=== PATIENT | female | born 1930 | race Caucasian/White ===

== ENCOUNTER 2017-01-28 08:10 | Observation (INO) | payer MEDICARE ==
[~2017-01-28 08:10] MED LIST: ALIG4CAP PO; B COTAB3 PO; CALC600T10 PO; COLA100C PO; CRANCAP PO; LEVO.125 PO; OMEP20CA5 PO; PROM6.2518 PO; REST30CA PO; ROSU10 PO; TAB-TAB PO; VITA100017 PO; VITA400C28 PO
[2017-01-28] MEDS ORDERED: LACTATED RINGER'S 1000 ML IV PRN (09:00)
[2017-01-28] MEDS ORDERED: CHLORHEXIDINE GLUCONATE 2 % 1 PACK (2 CLOTHS) TOPICAL PRN (09:00)
[2017-01-28] MEDS ORDERED: INSULIN HUMAN REGULAR 1,000 UNITS/10 ML VIAL SQ PRN (09:00)
[2017-01-28] MEDS ORDERED: POVIDONE IODINE 5% (ANTISEPSIS KIT) 4 APPLICATIONS EACH NARE PRN (09:00)
[2017-01-28] MEDS ORDERED: SODIUM CHLORID 0.9% 500 ML IV PRN (09:00)
[2017-01-28] MEDS ORDERED: METOPROLOL TARTRATE 25 MG TAB PO PRN (09:00)
[2017-01-28] MEDS ORDERED: ASCO10003 PO (09:12)
[2017-01-28] MEDS ORDERED: TEMA30CA PO (09:12)
[2017-01-28] MEDS ORDERED: DOCU100T9 PO (09:12)
[2017-01-28] MEDS ORDERED: CRAN500C3 PO (09:12)
[2017-01-28] MEDS ORDERED: VITA400T2 PO (09:12)
[2017-01-28] MEDS ORDERED: CALCTAB5 PO (09:12)
[2017-01-28] MEDS ORDERED: LEVO125T4 PO (09:12)
[2017-01-28] MEDS ORDERED: ROSU10 PO (09:12)
[2017-01-28] MEDS ORDERED: OMEP20TA PO (09:12)
[2017-01-28] MEDS ORDERED: ALIG4CAP PO (09:12)
[2017-01-28] MEDS ORDERED: VITACAP7 PO (09:12)
[2017-01-28] MEDS ORDERED: PROM10SO PO (09:12)
[2017-01-28] MEDS ORDERED: MORPHINE SULFATE 4 MG/ML INJ IV PUSH ONE (11:35)
[2017-01-28 11:50] VITALS: PULSE 68
--- NOTE | 2017-01-28 12:18 | GIPROC ---
[facility] [address] [facility]. [facility], [id number] EGD PROCEDURE REPORT EXAM DATE: 01/28/2017 PATIENT NAME: Stevo Sanchez MR #: [id number] BIRTHDATE: 1930 ATTENDING: Tavo Burrell MD ORDER #: [id number] INSPECTOR: Artie Dong and Aleena Carney STATUS: outpatient INDICATIONS: The patient is a 86 yr old female here for an EGD due to Pancreatic cyst PROCEDURE PERFORMED: upper endoscopic ultrasound MEDICATIONS: None and Per Anesthesia. TOPICAL ANESTHETIC: CONSENT: The patient understands the risks and benefits of the procedure and understands that these risks include, but are not limited to: sedation, allergic reaction, infection, perforation and/or bleeding. Alternative means of evaluation and treatment include, among others: physical exam, x-rays, and/or surgical intervention. The patient elects to proceed with this endoscopic procedure. medical equipment was checked for proper function. Hand hygiene and appropriate measures for infection prevention was taken. After the risks, benefits and alternatives of the procedure were thoroughly explained, Informed consent was verified, confirmed and timeout was successfully executed by the treatment team. The patient was anesthetized with topical anesthesia and the Pentax [id number]-[id number] endoscope was introduced through the mouth and advanced to the second portion of the duodenum. Retroflexion was not performed The gastroscope was then slowly withdrawn and removed. Endoscopic ultrasound was performed of the upper GI tract The pancreatic parenchyma appeared to be unremarkable mildly hyperechoic from head to tail no cysts or tumors were identified Pancreatic duct was within normal limits Common bile duct was within normal limits with no filling defects No lymphadenopathy identified. STOMACH: A medium sized hiatal hernia was noted. ADVERSE EVENTS: There were no complications. IMPRESSIONS: 1. Endoscopic ultrasound was performed of the upper GI tract The pancreatic parenchyma appeared to be unremarkable mildly hyperechoic from head to tail no cysts or tumors were identified Pancreatic duct was within normal limits Common bile duct was within normal limits with no filling defects No lymphadenopathy identified 2. Medium sized hiatal hernia 3. Retroflexion was not performed RECOMMENDATIONS: Follow-up: GI clinic 3 week(s) PATIENT CONDITION: stable DISPOSITION: Home REPEAT EXAM: Tavo Burrell MD eSigned: Tavo Burrell MD 01/28/2017 12:17 PM cc: Jesus Santos M.D. PATIENT NAME: Stevo Sanchez MR#: [id number]
--- NOTE | 2017-01-28 13:30 | RADRPT ---
EXAM DATE/TIME: 01/28/2017 12:47 [facility] COMPARISON: No previous studies available for comparison. INDICATIONS : Abdomen pain after endoscope. ORAL CONTRAST: No oral contrast ingested. RADIATION DOSE: 5.47 CTDIvol (mGy) ; Combined studies - Thorax/Abdomen/Pelvis MEDICAL HISTORY : Cardiovascular disease. SURGICAL HISTORY : Colon resection. Cholecystectomy.Hysterectomy.Appy ENCOUNTER: Initial ACUITY: 1 day PAIN SCALE: 9/10 LOCATION: Abdomen TECHNIQUE: Volumetric scanning of the abdomen was performed. Using automated exposure control and adjustment of the mA and/or kV according to patient size, radiation dose was kept as low as reasonably achievable to obtain optimal diagnostic quality images. FINDINGS: LOWER LUNGS: There is atelectasis in the dependent portions of the lung bases. LIVER: Homogeneous density without lesion. There is no dilation of the biliary tree. No calcified gallston es. SPLEEN: Normal size without lesion. PANCREAS: Within normal limits. KIDNEYS: Normal in size and shape. There is no solid mass, stone, or hydronephrosis. There is a large simple cyst in the right kidney. ADRENAL GLANDS: Within normal limits. AORTA/RETROPERITONEAL: There is no aneurysm or lymphadenopathy. BOWEL/MESENTERY: There is diffuse gaseous dilatation of the colon. The cecum measures up to approximately 7 cm in diam eter. Small bowel is normal in caliber with multiple loops of air-containing small bowel with several small air-fluid levels. There is a moderate size retrocardiac hiatal hernia with apparent small jordan ections of gas along the distal esophagus and posterior vertebral column most consistent with small a reas of free air. This is seen on images numbers one through 5. MUSCULOSKELETAL: Within normal limits for patient age. CONCLUSION: 1. Small collections of free air along the distal esophagus suggesting perforation. Please see chest CT for further details. 2. Abnormal bowel gas pattern most characteristic of an ileus. 3. Moderate size retrocardiac hiatal hernia. Merlin Lucia MD on January 28, 2017 at 13:18 Board Certified Radiologist. This report was verified electronically.
[2017-01-28] MEDS ORDERED: HYDROmorphone HCL PF 2 MG/ML VIAL IV PUSH ONE (13:45)
--- NOTE | 2017-01-28 13:48 | RADRPT ---
EXAM DATE/TIME: 01/28/2017 12:50 [facility] COMPARISON: No previous studies available for comparison. INDICATIONS : Shortness of breath after endoscope. RADIATION DOSE: 5.47 CTDIvol (mGy) MEDICAL HISTORY : Cardiovascular disease. SURGICAL HISTORY : Colon resection. Cholecystectomy. Appendectomy. Hysterectomy ENCOUNTER: Initial ACUITY: 1 day PAIN SCALE: 10/10 LOCATION: Chest TECHNIQUE: Volumetric scanning of the chest was performed. Using automated exposure control and adjustment of t he mA and/or kV according to patient size, radiation dose was kept as low as reasonably achievable to obtain optimal diagnostic quality images. FINDINGS: CT scan of the chest was performed to exclude a perforation following esophageal dilatation. Moderate parenchymal changes are seen in both lungs. I can follow the esophagus down to the hiatal hernia and on image 28, 27, and 26 there is a small col lection of air that is in the paraspinous tissues that would be consistent with a perforation. Minimal bibasilar pa renchymal changes are evident. Patient does have a large right renal cyst. The findings below the diaphragm are described in detail on the CT scan of the abdomen. CONCLUSION: 1. Small amount of paraspinal air at the level of the hiatal hernia. This would be consistent with small perforation. 2. Findings are discussed with Dr. Burrell on today's date. Kelvin Walters MD FACR on January 28, 2017 at 13:22 Board Certified Radiologist. This report was verified electronically.
--- NOTE | 2017-01-28 14:41 | HHI.GIFU ---
Subjective Remarks While in recovery patient complained of upper abdominal pain and so a CT of the chest and abdomen without contrast was performed and there was a small pocket of air surrounding the distal esophagus just above the hiatal hernia suggesting a small perforation and as such the patient was admitted for further evaluation and treatment the patient received 1 g of dye lauded which has helped with the pain she is currently comfortable in bed does not feel any nausea or vomiting the pain is under control Objective Vitals I&O Patient alert and oriented vital signs stable and afebrile Laboratory CBC and CMP is ordered Imaging Last Impressions Abdomen CT 01/28/17 0000 Signed Impressions: Service Date/Time: Saturday, January 28, 2017 12:47 - CONCLUSION: 1. Small collections of free air along the distal esophagus suggesting perforation. Please see chest CT for further details. 2. Abnormal bowel gas pattern most characteristic of an ileus. 3. Moderate size retrocardiac hiatal hernia. Merlin Lucia MD Physical Exam HEENT: Pupils round and reactive to light; normocephalic; atraumatic; no jaundice. Throat is clear. NECK: Neck is supple, no JVD, no lymphadenopathy. CHEST: Chest is clear to auscultation and percussion. CARDIAC: Regular rate and rhythm with no murmur gallop or rubs. ABDOMEN: Soft, mildly distended, with mild tenderness in the upper abdomen; no hepatosplenomegaly; bowel sounds are present in all four quadrants. EXTREMITIES: No clubbing, cyanosis, or edema. SKIN: Normal; no rash; no jaundice. 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 Assessment and Plan Plan History of pancreatic cyst status post EUS which was unremarkable Small amount of free air noted surrounding the distal esophagus suggestive of a possible small perforation An NG tube was placed to low intermittent suction Patient to be monitored overnight Further recommendations shall depend on her hospital course She will remain nothing by mouth and blood work is ordered EKG was done and this was unremarkable Tavo Burrell MD Jan 28, 2017 14:41
[2017-01-28] MEDS ORDERED: ONDANSETRON HCL 4 MG/2 ML VIAL IV PUSH ONE ×2 (14:45→19:00)
--- NOTE | 2017-01-28 15:27 | RADRPT ---
EXAM DATE/TIME: 01/28/2017 14:41 [facility] COMPARISON: CHEST PA & LAT, June 10, 2013, 9:56. INDICATIONS : Evaluate NG tube placement. MEDICAL HISTORY : Cardiovascular disease. SURGICAL HISTORY : Colon resection. Cholecystectomy. Appendectomy. Hysterectomy. ENCOUNTER: Initial ACUITY: 1 day PAIN SCORE: 0/10 LOCATION: Abdomen, upper quadrant. FINDINGS: 2 AP supine portable views the chest were obtained and demonstrate interval placement nasogastric tub e with the tip projected over the mid esophagus. The side port is projected near the thoracic inlet. The tube could be advanced at least 10 cm. There is a small to moderate size left effusion with blunt ing of costophrenic angle. There is patchy opacity at the left lung base. The right lung is clear. Th e heart size is at the upper limits of normal. Surgical clips are again noted in the right upper abdo men consistent with prior cholecystectomy. CONCLUSION: 1. Interval placement of nasogastric tube with the tip projected in the mid esophagus. The tube could be advanced at least 10 cm. 2. Fuowe-ue-zzvnondv left effusion. Merlin Lucia MD on January 28, 2017 at 15:23 Board Certified Radiologist. This report was verified electronically.
[2017-01-28] MEDS ORDERED: BENZOCAINE 20% ORAL SPR 60 ML CAN OROPHARYNG ONE (17:42)
[2017-01-28] MEDS ORDERED: PROPOFOL 200 MG/20 ML AMP IV ONE (18:08)
[2017-01-28 18:37] VITALS: BP 128/77; PULSE 78; RESP 16; TEMP 95.5; O2SAT 92
[2017-01-28] MEDS ORDERED: FLUMAZENIL 0.5 MG/5 ML VIAL IV PRN ×2 (19:00)
[2017-01-28] MEDS ORDERED: NALOXONE HCL 0.4 MG/ML AMP IV PRN (19:00)
[2017-01-28] MEDS: HYDROmorphone HCL PF 1 MG/ML VIAL IV ONE (19:00)
--- NOTE | 2017-01-28 19:07 | EKG ---
Date Performed: 01/28/2017 Time Performed: 12:12:59 PTAGE: 86 years EKG: Sinus rhythm NORMAL ECG Artifact Since PREVIOUS TRACING , no significant change noted PREVIOUS TRACIN01/28/2017 08.41 DOCTOR: Silvia Benitez Interpretating Date/Time 01/28/2017 19:05:31
--- NOTE | 2017-01-28 19:52 | EKG ---
Date Performed: 01/28/2017 Time Performed: 08:41:14 PTAGE: 86 years EKG: Sinus rhythm LOW QRS VOLTAGE IN PRECORDIAL LEADS BORDERLINE ECG Since PREVIOUS TRACING , no significant change noted PREVIOUS TRACIN06/10/2013 08.55 DOCTOR: Silvia Benitez Interpretating Date/Time 01/28/2017 19:51:52
[2017-01-28] MEDS ORDERED: ONDANSETRON HCL 4 MG/2 ML VIAL IV PUSH PRN (20:45)
--- NOTE | 2017-01-28 20:56 | PD.PROCEDR ---
GI Procedure PROCEDURE PERFORMED EGD with NG tube placement INDICATION FOR PROCEDURE Possible perforation and inability to place NG tube PROCEDURE: The procedure, risks and benefits were discussed with Ms. Sanchez and informed consent was obtained. Anesthesia sedated her with Diprivan. She was placed in the left lateral decubitus position. EGD: The Pentax videoscope was introduced through the oropharynx and advanced to the second portion of the duodenum under direct visualization. Retroflexion was performed in the stomach. FINDINGS: Esophagus this appeared to be unremarkable and within normal limits there was a kink at the end of the esophagus that prevented the NG tube from passing freely and at this point in time with direct visualization I was able to guide the NG tube into the stomach The stomach this too appeared to be unremarkable the patient did have a large hiatal hernia but otherwise gastric mucosa unremarkable no evidence of a tear was noted on retroflexion or antegrade evaluation The duodenum this appeared to be normal ESTIMATED BLOOD LOSS: None SPECIMENS REMOVED: None COMPLICATIONS: None IMPRESSION: Large hiatal hernia Successful NG tube placement PLAN: Supportive care Tavo Burrell MD Jan 28, 2017 20:56
[2017-01-28] MEDS: D5-1/2 NS + KCL 20 MEQ INJ 1,000 ML IV SCH (21:25)
[2017-01-28] MEDS: cefTRIAXone INJ 1,000 MG in SODIUM CHLORIDE 0.9% INJ 100 ML IV SCH (21:25)
[2017-01-29] VITALS: BP 122/74; PULSE 92; RESP 18; TEMP 97.1; O2SAT 98
[2017-01-29 00:47] LABS: HEMATOCRIT 39.1 % (35.0-46.0); MEAN CELL VOLUME 88.7 FL (80.0-100.0); MEAN CORPUSCULAR HEMOGLOBIN 28.4 PG (27.0-34.0); PLATELET COUNT 183 TH/MM3 (150-450); RED BLOOD COUNT 4.41 MIL/MM3 (4.00-5.30); RED CELL DISTRIBUTION WIDTH 13.4 % (11.6-17.2); REVIEW FLAG FINAL; WHITE BLOOD COUNT 18.1 TH/MM3 (4.0-11.0)
[2017-01-29 01:02] LABS: ALT (GPT) 28 U/L (10-53); ANION GAP 6 MEQ/L (5-15); AST (GOT) 25 U/L (15-37); BICARBONATE 28.2 MEQ/L (21.0-32.0); BLOOD UREA NITROGEN 23 MG/DL (7-18); CHLORIDE 108 MEQ/L (98-107); GLOMERULAR FILTRATION RATE 66 ML/MIN (>89); POTASSIUM 5.2 MEQ/L (3.5-5.1); SODIUM (NA) 142 MEQ/L (136-145)
[2017-01-29 01:04] LABS: ALKALINE PHOSPHATASE 78 U/L (45-117); TOTAL BILIRUBIN ADULT 0.3 MG/DL (0.2-1.0)
[2017-01-29] MEDS: HYDROmorphone HCL PF 1 MG/ML VIAL IV ONE (02:40)
[2017-01-29 04:00] VITALS: BP 120/59; PULSE 73; RESP 18; TEMP 97.6; O2SAT 94
[2017-01-29 04:35] LABS: HEMATOCRIT 36.9 % (35.0-46.0); MEAN CELL VOLUME 87.7 FL (80.0-100.0); MEAN CORPUSCULAR HGB CONC 31.9 % (32.0-36.0); PLATELET COUNT 193 TH/MM3 (150-450); RED BLOOD COUNT 4.21 MIL/MM3 (4.00-5.30); RED CELL DISTRIBUTION WIDTH 13.1 % (11.6-17.2); REVIEW FLAG FINAL; WHITE BLOOD COUNT 16.1 TH/MM3 (4.0-11.0)
--- NOTE | 2017-01-29 05:40 | RADRPT ---
EXAM DATE/TIME: 01/29/2017 04:44 [facility] COMPARISON: CHEST SINGLE AP, June 22, 2013, 11:25. INDICATIONS : Congestion. MEDICAL HISTORY : Cardiovascular disease. SURGICAL HISTORY : None. ENCOUNTER: Subsequent ACUITY: 2 days PAIN SCORE: 3/10 LOCATION: Bilateral chest FINDINGS: There is an NG tube in the stomach. There is some platelike atelectasis in the right midlung. There i s some atelectasis in the left lower lung. Otherwise lungs are clear. There is no effusions or pulmon mariama edema. The heart size is stable. The bony structures are stable. CONCLUSION: There is some platelike atelectasis in the right midlung and left lower lung. NG tube in the stomach. Antoine Villavicencio MD on January 29, 2017 at 5:37 Board Certified Radiologist. This report was verified electronically.
--- NOTE | 2017-01-29 05:41 | RADRPT ---
EXAM DATE/TIME: 01/29/2017 04:47 [facility] COMPARISON: ABDOMEN KUB ONLY, January 28, 2017, 14:41. INDICATIONS : Free air. Abdominal pain. MEDICAL HISTORY : Cardiovascular disease. SURGICAL HISTORY : Colon resection. Cholecystectomy. Appendectomy. Hysterectomy. ENCOUNTER: Subsequent ACUITY: 2 days PAIN SCORE: 3/10 LOCATION: Left abdominal pain. FINDINGS: There continues to be gaseous distention of the colon. This is either about the same or slightly impr trupti compared to the prior study. Otherwise, no new or significant changes are demonstrated. There ap pears to be an NG tube in stomach. The bony structures are stable. CONCLUSION: The gaseous distention of the colon is about the same or mildly improved Antoine Villavicencio MD on January 29, 2017 at 5:38 Board Certified Radiologist. This report was verified electronically.
[2017-01-29 08:00] VITALS: BP 101/54; PULSE 61; RESP 17; TEMP 97.7; O2SAT 99
[2017-01-29] MEDS: D5-1/2 NS + KCL 20 MEQ INJ 1,000 ML IV SCH (08:40)
[2017-01-29 12:00] VITALS: BP 106/57; PULSE 77; RESP 17; TEMP 98.7; O2SAT 95
[2017-01-29 16:00] VITALS: BP 108/59; PULSE 84; RESP 17; TEMP 98.7; O2SAT 95
[2017-01-29] MEDS ORDERED: ONDANSETRON HCL 4 MG/2 ML VIAL IV PUSH SCH (17:00)
[2017-01-29] MEDS ORDERED: oxyCODONE/ACETAMINOPHEN 5 MG/325 MG TAB PO ONE (19:30)
[2017-01-29 20:00] VITALS: BP 105/53; PULSE 81; RESP 19; TEMP 99.2; O2SAT 92
[2017-01-29] MEDS: ONDANSETRON ODT 4 MG TAB PO PRN (20:26)
[2017-01-29] MEDS: cefTRIAXone INJ 1,000 MG in SODIUM CHLORIDE 0.9% INJ 100 ML IV SCH (20:26)
[2017-01-29] MEDS: TEMAZEPAM 15 MG CAP PO PRN (20:33)
--- NOTE | 2017-01-29 23:08 | HHI.GIFU ---
Subjective Remarks Patient laying comfortably in bed complains of some right lower quadrant discomfort she had vomited once early in the morning and is anxious and wanting to go home Objective Vitals I&O Vital Signs Date Time Temp Pulse Resp B/P Pulse Ox O2 Delivery O2 Flow Rate FiO2 01/29/17 20:00 99.2 81 19 105/53 92 01/29/17 16:00 98.7 84 17 108/59 95 01/29/17 12:00 98.7 77 17 106/57 95 01/29/17 08:00 97.7 61 17 101/54 99 01/29/17 04:00 97.6 73 18 120/59 94 01/29/17 03:10 18 01/29/17 00:00 97.1 92 18 122/74 98 I/O 01/28/17 01/28/17 01/28/17 01/29/17 01/29/17 01/29/17 07:00 15:00 23:00 07:00 15:00 23:00 Intake Total 1000 ml 707 ml 0 ml 160 ml Output Total 30 ml 0 ml 450 ml Balance 1000 ml -30 ml 707 ml -450 ml 160 ml Intake Oral 0 ml 0 ml 60 ml IV Total 1000 ml 707 ml 100 ml Output Urine Total 450 ml Gastric Drainage Total 0 ml Emesis 30 ml # Voids 2 1 2 # Bowel Movements 0 0 0 0 Laboratory Laboratory Tests Test 01/29/17 01/29/17 00:20 03:46 White Blood Count 18.1 16.1 Red Blood Count 4.41 4.21 Hemoglobin 12.5 11.8 Hematocrit 39.1 36.9 Mean Corpuscular Volume 88.7 87.7 Mean Corpuscular Hemoglobin 28.4 28.0 Mean Corpuscular Hemoglobin 32.0 31.9 Concent Red Cell Distribution Width 13.4 13.1 Platelet Count 183 193 Mean Platelet Volume 7.8 8.2 Sodium Level 142 Potassium Level 5.2 Chloride Level 108 Carbon Dioxide Level 28.2 Anion Gap 6 Blood Urea Nitrogen 23 Creatinine 0.82 Estimat Glomerular Filtration 66 Rate Random Glucose 129 Calcium Level 9.1 Total Bilirubin 0.3 Aspartate Amino Transf 25 (AST/SGOT) Alanine Aminotransferase 28 (ALT/SGPT) Alkaline Phosphatase 78 Total Protein 6.9 Albumin 3.5 Imaging Last 48 hours Impressions Chest X-Ray 4/27/17 0600 Signed Impressions: Service Date/Time: January 04:44 - CONCLUSION: There is some platelike atelectasis in the right midlung and left lower lung. NG tube in the stomach. Antoine Villavicencio MD Abdomen X-Ray 01/29/17599 Signed Impressions: Service Date/Time: January 04:47 - CONCLUSION: The gaseous distention of the colon is about the same or mildly improved Antoine Villavicencio MD Chest CT 01/28/17 Signed Impressions: Service Date/Time: Saturday, January 28, 2017 12:50 - CONCLUSION: 1. Small amount of paraspinal air at the level of the hiatal hernia. This would be consistent with small perforation. 2. Findings are discussed with Dr. Burrell on today's date. Kelvin Walters MD FACR Abdomen X-Ray 01/28/17 Signed Impressions: Service Date/Time: Saturday, January 28, 2017 14:41 - CONCLUSION: 1. Interval placement of nasogastric tube with the tip projected in the mid esophagus. The tube could be advanced at least 10 cm. 2. Wxmer-sw-anmdficl left effusion. Merlin Lucia MD Abdomen CT 01/28/17 Signed Impressions: Service Date/Time: Saturday, January 28, 2017 12:47 - CONCLUSION: 1. Small collections of free air along the distal esophagus suggesting perforation. Please see chest CT for further details. 2. Abnormal bowel gas pattern most characteristic of an ileus. 3. Moderate size retrocardiac hiatal hernia. Merlin Lucia MD Physical Exam HEENT: Atraumatic no jaundice throat is clear NECK: Neck is supple, no JVD, no lymphadenopathy. CHEST: Chest is clear to auscultation and percussion. CARDIAC: Regular rate and rhythm with no murmur gallop or rubs. ABDOMEN: Soft, nondistended mild right lower quadrant discomfort and tenderness no rebound or guarding; no hepatosplenomegaly; bowel sounds are present in all four quadrants. EXTREMITIES: No clubbing, cyanosis, or edema. SKIN: Normal; no rash; no jaundice. 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 Assessment and Plan Plan History of pancreatic cyst status post EUS which was unremarkable Small amount of free air noted surrounding the distal esophagus suggestive of a possible small perforation We will remove NG tube and start a clear liquid diet Patient to be monitored overnight possible discharge tomorrow if all is stable Further recommendations shall depend on her hospital course She will remain nothing by mouth and blood work is ordered EKG was done and this was unremarkable Tavo Burrell MD Jan 29, 2017 23:08
[2017-01-30 00:02] VITALS: BP 96/60; PULSE 90; RESP 18; TEMP 98.2; O2SAT 94
[2017-01-30 04:00] VITALS: BP 112/59; PULSE 86; RESP 20; TEMP 97.1; O2SAT 96
[2017-01-30 05:02] LABS: HEMATOCRIT 32.9 % (35.0-46.0); MEAN CELL VOLUME 87.5 FL (80.0-100.0); MEAN CORPUSCULAR HEMOGLOBIN 28.8 PG (27.0-34.0); MEAN CORPUSCULAR HGB CONC 32.9 % (32.0-36.0); PLATELET COUNT 174 TH/MM3 (150-450); RED BLOOD COUNT 3.76 MIL/MM3 (4.00-5.30); RED CELL DISTRIBUTION WIDTH 13.1 % (11.6-17.2); REVIEW FLAG FINAL; WHITE BLOOD COUNT 11.7 TH/MM3 (4.0-11.0)
[2017-01-30 05:11] LABS: ALKALINE PHOSPHATASE 76 U/L (45-117); ALT (GPT) 25 U/L (10-53); AST (GOT) 24 U/L (15-37); BICARBONATE 28.5 MEQ/L (21.0-32.0); BLOOD UREA NITROGEN 15 MG/DL (7-18); CHLORIDE 105 MEQ/L (98-107); GLOMERULAR FILTRATION RATE 82 ML/MIN (>89); POTASSIUM 3.4 MEQ/L (3.5-5.1); SODIUM (NA) 141 MEQ/L (136-145); TOTAL BILIRUBIN ADULT 0.4 MG/DL (0.2-1.0)
[2017-01-30 05:12] LABS: ANION GAP 8 MEQ/L (5-15)
[2017-01-30] MEDS: BENZOCAINE-MENTHOL (SUGAR FREE) 15 MG-3.6 MG LOZENGE BUCCAL PRN ×3 (05:43→11:29)
[2017-01-30 07:55] VITALS: BP 106/58; PULSE 89; RESP 17; TEMP 98.4; O2SAT 95
--- NOTE | 2017-01-30 11:26 | RADRPT ---
EXAM DATE/TIME: 01/30/2017 10:25 [facility] COMPARISON: CHEST SINGLE AP, January 29, 2017, 4:44. INDICATIONS : Cough MEDICAL HISTORY : Cardiovascular disease. SURGICAL HISTORY : Colon resection. Cholecystectomy. Hysterectomy. Appy ENCOUNTER: Subsequent ACUITY: 3 days PAIN SCORE: 0/10 LOCATION: Bilateral chest FINDINGS: Nasogastric tube has been removed. Minimal parenchymal changes are seen in the left base. The right lung is clear. The heart and pulmonary vascularity are normal. CONCLUSION: Very minimal parenchymal changes left base, improved in the interval. There is no mediastinal air. Kelvin Walters MD FACR on January 30, 2017 at 11:20 Board Certified Radiologist. This report was verified electronically.
[2017-01-30] MEDS: ONDANSETRON ODT 4 MG TAB PO PRN (11:28)
--- NOTE | 2017-01-30 11:35 | RADRPT ---
EXAM DATE/TIME: 01/30/2017 10:21 [facility] COMPARISON: ABDOMEN KUB ONLY, January 29, 2017, 4:47. INDICATIONS : Abdominal pain. MEDICAL HISTORY : Cardiovascular disease. SURGICAL HISTORY : Colon resection. Cholecystectomy. Hysterectomy. Appy ENCOUNTER: Subsequent ACUITY: 3 days PAIN SCORE: 6/10 LOCATION: Right lower quadrant FINDINGS: Moderate gaseous distention of colon remains. Stomach is decompressed. There is no free air. Total hip is seen on the right. CONCLUSION: 1. Interval improvement with less gaseous distention of colon. 2. Nasogastric tube has been removed. Kelvin Walters MD FACR on January 30, 2017 at 11:23 Board Certified Radiologist. This report was verified electronically.
[2017-01-30 12:00] VITALS: BP 126/71; PULSE 82; RESP 20; TEMP 97.3; O2SAT 95
[2017-01-30 16:00] VITALS: BP 131/72; PULSE 77; RESP 18; TEMP 98.8; O2SAT 95
[2017-01-30] MEDS ORDERED: PANTOPRAZOLE SOD 40 MG DELAYED RELEASE TAB PO ONE (16:00)
[2017-01-30 20:00] VITALS: BP 139/72; PULSE 78; RESP 18; TEMP 98.2; O2SAT 94
[2017-01-30] MEDS: cefTRIAXone INJ 1,000 MG in SODIUM CHLORIDE 0.9% INJ 100 ML IV SCH (21:38)
[2017-01-30] MEDS: TEMAZEPAM 15 MG CAP PO PRN (21:38)
[2017-01-31] VITALS: BP 120/74; PULSE 90; RESP 18; TEMP 97.5; O2SAT 92
--- NOTE | 2017-01-31 00:01 | HHI.GIFU ---
Subjective Remarks Still some nausea less abdominal pain no chest pain and no shortness of breath Objective Vitals I&O Vital Signs Date Time Temp Pulse Resp B/P Pulse Ox O2 Delivery O2 Flow Rate FiO2 01/30/17 20:00 98.2 78 18 139/72 94 01/30/17 16:00 98.8 77 18 131/72 95 01/30/17 12:00 97.3 82 20 126/71 95 01/30/17 07:55 98.4 89 17 106/58 95 01/30/17 04:00 97.1 86 20 112/59 96 01/30/17 00:02 98.2 90 18 96/60 94 I/O 01/29/17 01/29/17 01/29/17 01/30/17 01/30/17 01/30/17 07:00 15:00 23:00 07:00 15:00 23:00 Intake Total 707 ml 0 ml 160 ml 420 ml 1466 ml 120 ml Output Total 0 ml 450 ml 400 ml 500 ml Balance 707 ml -450 ml 160 ml 20 ml 966 ml 120 ml Intake Oral 0 ml 0 ml 60 ml 120 ml 880 ml 120 ml IV Total 707 ml 100 ml 300 ml 586 ml Output Urine Total 450 ml 400 ml 500 ml Gastric Drainage Total 0 ml # Voids 1 2 1 3 # Bowel Movements 0 0 0 1 1 3 Laboratory Laboratory Tests Test 01/30/17 04:06 White Blood Count 11.7 Red Blood Count 3.76 Hemoglobin 10.8 Hematocrit 32.9 Mean Corpuscular Volume 87.5 Mean Corpuscular Hemoglobin 28.8 Mean Corpuscular Hemoglobin 32.9 Concent Red Cell Distribution Width 13.1 Platelet Count 174 Mean Platelet Volume 8.2 Sodium Level 141 Potassium Level 3.4 Chloride Level 105 Carbon Dioxide Level 28.5 Anion Gap 8 Blood Urea Nitrogen 15 Creatinine 0.68 Estimat Glomerular Filtration 82 Rate Random Glucose 90 Calcium Level 8.5 Total Bilirubin 0.4 Aspartate Amino Transf 24 (AST/SGOT) Alanine Aminotransferase 25 (ALT/SGPT) Alkaline Phosphatase 76 Total Protein 6.2 Albumin 2.9 Imaging Last Impressions Chest X-Ray 01/30/17 0000 Signed Impressions: Service Date/Time: Monday, January 30, 2017 10:25 - CONCLUSION: Very minimal parenchymal changes left base, improved in the interval. There is no mediastinal air. Kelvin Walters MD FACR Abdomen X-Ray 01/30/17 0000 Signed Impressions: Service Date/Time: Monday, January 30, 2017 10:21 - CONCLUSION: 1. Interval improvement with less gaseous distention of colon. 2. Nasogastric tube has been removed. Kelvin Walters MD FACR Chest CT 01/28/17 0000 Signed Impressions: Service Date/Time: Saturday, January 28, 2017 12:50 - CONCLUSION: 1. Small amount of paraspinal air at the level of the hiatal hernia. This would be consistent with small perforation. 2. Findings are discussed with Dr. Burrell on today's date. Kelvin Walters MD FACR Abdomen CT 01/28/17 0000 Signed Impressions: Service Date/Time: Saturday, January 28, 2017 12:47 - CONCLUSION: 1. Small collections of free air along the distal esophagus suggesting perforation. Please see chest CT for further details. 2. Abnormal bowel gas pattern most characteristic of an ileus. 3. Moderate size retrocardiac hiatal hernia. Merlin Lucia MD Physical Exam HEENT: Atraumatic no jaundice throat is clear NECK: Neck is supple, no JVD, no lymphadenopathy. CHEST: Chest is clear to auscultation and percussion. CARDIAC: Regular rate and rhythm with no murmur gallop or rubs. ABDOMEN: Soft, nondistended nontender; no hepatosplenomegaly; bowel sounds are present in all four quadrants. EXTREMITIES: No clubbing, cyanosis, or edema. SKIN: Normal; no rash; no jaundice. CORRECTIONS SERGEANT: No focal deficits; alert and oriented times three. Assessment and Plan Plan History of pancreatic cyst status post EUS which was unremarkable Small amount of free air noted surrounding the distal esophagus suggestive of a possible small perforation We will advance diet Patient to be monitored overnight possible discharge tomorrow if all is stable Further recommendations shall depend on her hospital course Continue on antibiotics Tavo Burrell MD Jan 31, 2017 00:00
[2017-01-31] MEDS: ONDANSETRON ODT 4 MG TAB PO PRN (04:26)
[2017-01-31 08:00] VITALS: BP 119/73; PULSE 91; RESP 16; TEMP 97.5; O2SAT 93
[2017-01-31] MEDS: D5-1/2 NS + KCL 20 MEQ INJ 1,000 ML IV SCH (08:48)
[2017-01-31] MEDS ORDERED: PANTOPRAZOLE SOD 40 MG DELAYED RELEASE TAB PO SCH (09:00)
[2017-01-31 12:00] VITALS: BP 123/76; PULSE 88; RESP 16; TEMP 96.8; O2SAT 95
--- NOTE | 2017-01-31 13:32 | HHI.GIFU ---
Subjective Remarks Patient comfortable in bed denies any pain denies any shortness of breath very eager to be going home she did well with breakfast and lunch Objective Vitals I&O Vital Signs Date Time Temp Pulse Resp B/P Pulse Ox O2 Delivery O2 Flow Rate FiO2 01/31/17 12:00 96.8 88 16 123/76 95 01/31/17 08:00 97.5 91 16 119/73 93 01/31/17 00:00 97.5 90 18 120/74 92 01/30/17 20:00 98.2 78 18 139/72 94 01/30/17 16:00 98.8 77 18 131/72 95 I/O 01/30/17 01/30/17 01/30/17 01/31/17 01/31/17 01/31/17 07:00 15:00 23:00 07:00 15:00 23:00 Intake Total 420 ml 1466 ml 120 ml 300 ml Output Total 400 ml 500 ml Balance 20 ml 966 ml 120 ml 300 ml Intake Oral 120 ml 880 ml 120 ml 0 ml IV Total 300 ml 586 ml 300 ml Output Urine Total 400 ml 500 ml # Voids 1 3 3 # Bowel Movements 1 1 3 3 Laboratory Laboratory Tests Test 01/30/17 04:06 White Blood Count 11.7 TH/MM3 Red Blood Count 3.76 MIL/MM3 Hemoglobin 10.8 GM/DL Hematocrit 32.9 % Mean Corpuscular Volume 87.5 FL Mean Corpuscular Hemoglobin 28.8 PG Mean Corpuscular Hemoglobin 32.9 % Concent Red Cell Distribution Width 13.1 % Platelet Count 174 TH/MM3 Mean Platelet Volume 8.2 FL Sodium Level 141 MEQ/L Potassium Level 3.4 MEQ/L Chloride Level 105 MEQ/L Carbon Dioxide Level 28.5 MEQ/L Anion Gap 8 MEQ/L Blood Urea Nitrogen 15 MG/DL Creatinine 0.68 MG/DL Estimat Glomerular Filtration 82 ML/MIN Rate Random Glucose 90 MG/DL Calcium Level 8.5 MG/DL Total Bilirubin 0.4 MG/DL Aspartate Amino Transf 24 U/L (AST/SGOT) Alanine Aminotransferase 25 U/L (ALT/SGPT) Alkaline Phosphatase 76 U/L Total Protein 6.2 GM/DL Albumin 2.9 GM/DL Imaging Last Impressions Chest X-Ray 01/30/17 0000 Signed Impressions: Service Date/Time: Monday, January 30, 2017 10:25 - CONCLUSION: Very minimal parenchymal changes left base, improved in the interval. There is no mediastinal air. Kelvin Walters MD FACR Abdomen X-Ray 01/30/17 0000 Signed Impressions: Service Date/Time: Monday, January 30, 2017 10:21 - CONCLUSION: 1. Interval improvement with less gaseous distention of colon. 2. Nasogastric tube has been removed. Kelvin Walters MD FACR Chest CT 01/28/17 0000 Signed Impressions: Service Date/Time: Saturday, January 28, 2017 12:50 - CONCLUSION: 1. Small amount of paraspinal air at the level of the hiatal hernia. This would be consistent with small perforation. 2. Findings are discussed with Dr. Burrell on today's date. Kelvin Walters MD FACR Abdomen CT 01/28/17 0000 Signed Impressions: Service Date/Time: Saturday, January 28, 2017 12:47 - CONCLUSION: 1. Small collections of free air along the distal esophagus suggesting perforation. Please see chest CT for further details. 2. Abnormal bowel gas pattern most characteristic of an ileus. 3. Moderate size retrocardiac hiatal hernia. Merlin Lucia MD Physical Exam HEENT: Atraumatic no jaundice throat is clear NECK: Neck is supple, no JVD, no lymphadenopathy. CHEST: Chest is clear to auscultation and percussion. CARDIAC: Regular rate and rhythm with no murmur gallop or rubs. ABDOMEN: Soft, nondistended nontender; no hepatosplenomegaly; bowel sounds are present in all four quadrants. EXTREMITIES: No clubbing, cyanosis, or edema. SKIN: Normal; no rash; no jaundice. MANAGER PART: No focal deficits; alert and oriented times three. Assessment and Plan Plan History of pancreatic cyst status post EUS which was unremarkable Small amount of free air noted surrounding the distal esophagus suggestive of a possible microperforation Patient is stable for discharge home She will be discharged on Cipro 500 twice a day Patient follow-up in clinic in 2 weeks Patient encouraged to report any new symptoms as they occur Tavo Burrell MD Jan 31, 2017 13:32
--- NOTE | 2017-01-31 13:47 | HHI.DS ---
Discharge Summary Admission Date Jan 28, 2017 at 13:29 Admitting Diagnosis CBC/BMP: 01/30/17 0406 01/30/17 0406 Significant Findings Laboratory Tests Test 01/29/17 01/29/17 01/30/17 00:20 03:46 04:06 White Blood Count 18.1 TH/MM3 16.1 TH/MM3 11.7 TH/MM3 (4.0-11.0) (4.0-11.0) (4.0-11.0) Potassium Level 5.2 MEQ/L 3.4 MEQ/L (3.5-5.1) (3.5-5.1) Chloride Level 108 MEQ/L (98-107) Blood Urea Nitrogen 23 MG/DL (7-18) Estimat Glomerular Filtration 66 ML/MIN (>89) 82 ML/MIN (>89) Rate Random Glucose 129 MG/DL (74-106) Mean Corpuscular Hemoglobin 31.9 % Concent (32.0-36.0) Red Blood Count 3.76 MIL/MM3 (4.00-5.30) Hemoglobin 10.8 GM/DL (11.6-15.3) Hematocrit 32.9 % (35.0-46.0) Total Protein 6.2 GM/DL (6.4-8.2) Albumin 2.9 GM/DL (3.4-5.0) Hospital Course Patient was admitted to the hospital following an EUS for pancreatic cyst with what appears to be a microperforation the hospital course has been unremarkable patient was placed on antibiotics and IV fluids and NG suction and she improved quickly without the need for any other intervention her diet was advanced yesterday and she tolerated intake and at present is wanting to go home Pt Condition on Discharge: Good Discharge Disposition: Discharge Home Discharge Instructions DIET: Follow Instructions for: As Tolerated, No Restrictions, Heart Healthy Diet Activities you can perform: Regular-No Restrictions Tavo Burrell MD Jan 31, 2017 13:46
[2017-01-31] MEDS ORDERED: CIPR-9 PO (14:02)
== END 2017-01-31 14:34 | disposition home or self-care (01) ==
LOC: HEND 08:10 → HSDI 13:29 → N07A 18:23
PROVIDERS: ADMIT Internal Medicine Gastroenterology; ATTEND Internal Medicine Gastroenterology
DX: K44.9 Diaphragmatic hernia without obstruction or gangrene (principal); R10.10 Upper abdominal pain, unspecified; R11.0 Nausea; Z98.890 Other specified postprocedural states; Z87.891 Personal history of nicotine dependence; Z87.19 Personal history of other diseases of the digestive system; Z80.51 Family history of malignant neoplasm of kidney; Z80.52 Family history of malignant neoplasm of bladder
CPT/HCPCS: 00740; 43259; 71010; 71250; 74000; 74150; 76937; 80053; 85027; 93005; G0378; J0696; J1170; J2270; J2405; J3010; J3480